=== PATIENT | female | born 1935 | race Two or more races ===

== ENCOUNTER 2024-06-06 17:44 | Inpatient (IN) | payer OTHER ==
[~2024-06-06] VITALS: Ht 149.9 cm; Wt 63.0 kg
[2024-06-06] MEDS ORDERED: GLIMEPIRIDE2 MG (18:00)
[2024-06-06] MEDS ORDERED: 0.9 % SODIUM CHLORIDE 1,000 ML IV ONE ×2 (18:15→20:30)
[2024-06-06] MEDS ORDERED: DEXTROSE 50 % IN WATER 0.5 G/ML VIAL IV ONE ×3 (18:15→23:00)
[2024-06-06 18:44] LABS: HEMOGLOBIN 10.4 g/dL (12.0-15.00); MEAN CELL VOLUME 95.3 fL (80.00-100.00); MEAN CORPUSCULAR HEMOGLOBIN 32.2 pg (27.00-32.0); MEAN CORPUSCULAR HGB CONC 33.7 g/dl (32.0-36.0); PLATELET COUNT 274 K/uL (150-450); RED BLOOD COUNT 3.25 M/uL (4.00-6.00); RED CELL DISTRIBUTION WIDTH 12.9 % (11.5-14.5)
[2024-06-06 18:55] LABS: INR 0.99; PROTHROMBIN TIME 10.8 SECONDS (9.0-11.5)
[2024-06-06 19:03] LABS: ALBUMIN 3.9 gm/dL (3.4-5.0); BILIRUBIN TOTAL 0.45 mg/dL (0.3-1.2); CALCIUM 9.3 mg/dL (8.5-10.1); CREATININE SERUM 0.98 mg/dL (0.55-1.02); GFR 53.68; GLOBULINA 3.6 G/DL (2.4-3.5); POTASSIUM 4.32 mEq/L (3.5-5.1); TOTAL PROTEIN 7.5 gm/dL (6.4-8.2)
[2024-06-06 19:07] LABS: D DIMER 0.65 MG/L
[2024-06-06 19:31] LABS: BILIRUBIN,CONJUGATED 0.11 mg/dL (0.0-0.2); BILIRUBIN,UNCONJUGATED 0.34 mg/dL (0.0-0.6)
[2024-06-06 20:26] LABS: URINE APPEARANCE Clear; URINE BILIRRUBIN Negative (NEGATIVE); URINE BLOOD Negative; URINE COLOR Yellow; URINE KETONE Negative (NEGATIVE); URINE LEUKOCYTE Negative; URINE NITRATE Negative; URINE PROTEIN Negative (NEGATIVE); URINE UROBILINOGEN 0.2 E.U./dl
[2024-06-06 20:30] LABS: URINE BACTERIA 26.4 uL (0.0-1933); URINE EPITHELIAL CELLS 9.1 uL (0.0-38.8); URINE WBC 15.4 uL (0.0-23.2)
[2024-06-06] MEDS ORDERED: LEVALBUTEROL HCL 0.63 MG/3 ML SOLUTION IH ONE (20:30)
[2024-06-06 20:53] LABS: URINE GLUCOSE 500 MG/DL (NEGATIVE); URINE RBC 0.3 uL (0.0-20.8)
[2024-06-06 21:45] LABS: ABG PH 7.383 (7.35-7.45); ABG PO2 88.2 mmHg (80-100); BICARBONATE 21.5 mmol/l (23-25); Tco2 22.7 mmol/l; o2 21 %
[2024-06-06 21:46] LABS: SaO2 96.5 %; allen test SATISFACTORY; puncture site RADIAL RIGHT
[2024-06-06] MEDS ORDERED: OCTREOTIDE ACETATE 0.05MG/ML (50MCG/ML) AMPUL IV ONE (23:00)
[2024-06-06] MEDS ORDERED: DEXTROSE 5 %-0.45 % SOD CHLORD 1,000 ML IV SCH ×2 (23:00→23:15)
[2024-06-06] MEDS ORDERED: DOXAZOSIN MESYLATE 2 MG TABLET PO SCH (23:21)
[2024-06-06] MEDS ORDERED: LevETIRAcetam 500 MG/5 ML VIAL IV SCH (23:22)
[2024-06-06] MEDS ORDERED: ACETAMINOPHEN 500 MG GEL..CAP PO PRN (23:30)
[2024-06-06] MEDS ORDERED: DEXTROSE 50 % IN WATER 0.5 G/ML DISP.SYRIN IV PRN (23:30)
[2024-06-07 00:32] VITALS: BP 138/50
[2024-06-07 00:39] LABS: INR 0.97; PARTIAL THROMBOPLASTIN TIME 29.1 SECONDS (22.0-34.0); PROTHROMBIN TIME 10.6 SECONDS (9.0-11.5)
[2024-06-07] MEDS ORDERED: INSULIN LISPRO 1,000 UNIT/10 ML UNITS SUBCUTANEO PRN (04:00)
[2024-06-07] MEDS ORDERED: DEXTROSE 50 % IN WATER 0.5 G/ML DISP.SYRIN IV PRN (04:00)
[2024-06-07 06:45] LABS: CREATININE SERUM 1.08 mg/dL (0.55-1.02); GFR 47.99; POTASSIUM 4.53 mEq/L (3.5-5.1)
[2024-06-07 06:58] VITALS: BP 149/61; O2SAT 100
[2024-06-07] MEDS ORDERED: FAMOTIDINE/PF 20 MG in 0.9 % SODIUM CHLORIDE 8 ML IV PUSH SCH (09:00)
[2024-06-07] MEDS ORDERED: HYDROCHLOROTHIAZIDE 12.5 MG CAPSULE PO SCH (09:00)
[2024-06-07] MEDS ORDERED: METOPROLOL SUCCINATE 25 MG TAB.SR.24H PO SCH (09:00)
[2024-06-07] MEDS ORDERED: IRBESARTAN 300 MG TABLET PO SCH (09:00)
[2024-06-07 10:30] VITALS: BP 145/75; O2SAT 100
[2024-06-07 17:00] VITALS: BP 109/58; O2SAT 99
[2024-06-08 01:50] VITALS: BP 131/77; O2SAT 97
[2024-06-08] MEDS ORDERED: SODIUM CHLORIDE 0.45 % 1,000 ML IV SCH (06:15)
[2024-06-08 08:00] VITALS: BP 160/71; O2SAT 96
[2024-06-08] MEDS ORDERED: LEVALBUTEROL HCL 1.25 MG/3 ML SOLUTION IH SCH (09:00)
[2024-06-08] MEDS ORDERED: BUDESONIDE 0.5 MG/2 ML AMPUL.NEB IH SCH (09:00)
[2024-06-08 15:14] LABS: HEMATOCRIT 31.3 % (36.0-45.00); HEMOGLOBIN 10.7 g/dL (12.0-15.00); MEAN CORPUSCULAR HEMOGLOBIN 32.5 pg (27.00-32.0); MEAN CORPUSCULAR HGB CONC 34.2 g/dl (32.0-36.0); PLATELET COUNT 221 K/uL (150-450); RED BLOOD COUNT 3.29 M/uL (4.00-6.00); RED CELL DISTRIBUTION WIDTH 12.7 % (11.5-14.5)
[2024-06-08 15:39] LABS: ALBUMIN 3.4 gm/dL (3.4-5.0); BILIRUBIN TOTAL 0.4 mg/dL (0.3-1.2); CALCIUM 8.8 mg/dL (8.5-10.1); CREATININE SERUM 1.18 mg/dL (0.55-1.02); GFR 43.33; GLOBULINA 2.7 G/DL (2.4-3.5); POTASSIUM 5.13 mEq/L (3.5-5.1); TOTAL PROTEIN 6.1 gm/dL (6.4-8.2)
[2024-06-08] MEDS ORDERED: METHYLPREDNISOLONE SOD SUCC 40 MG VIAL IV STA (16:36)
[2024-06-08] MEDS ORDERED: METHYLPREDNISOLONE SOD SUCC 40 MG VIAL IV SCH (17:00)
[2024-06-08] MEDS ORDERED: IPRATROPIUM BROMIDE 0.5 MG/2.5 ML AMPUL.NEB IH SCH (17:00)
[2024-06-08 18:23] VITALS: BP 136/63; O2SAT 96
[2024-06-09 00:35] VITALS: BP 112/52; O2SAT 99
[2024-06-09 08:27] VITALS: BP 153/710; O2SAT 97
[2024-06-09 17:00] VITALS: BP 152/58; O2SAT 98
[2024-06-10 08:00] VITALS: BP 180/86; O2SAT 98
== END 2024-06-10 15:59 | disposition home or self-care (01) | DRG 638 ==
LOC: ER 17:45 → ICU-2 23:24 → SURH 23:24
PROVIDERS: General Practice; Internal Medicine; ADMIT Internal Medicine; ATTEND Internal Medicine
PROC: BB24YZZ Computerized Tomography (CT Scan) of Bilateral Lungs using Other Contrast (ICD-10-PCS; principal; 2024-06-06)
PROC: BW28ZZZ Computerized Tomography (CT Scan) of Head (ICD-10-PCS; 2024-06-06)
DX: E11.649 Type 2 diabetes mellitus with hypoglycemia without coma (principal); G40.89 Other seizures; T38.3X1A Poisoning by insulin and oral hypoglycemic [antidiabetic] drugs, accidental (unintentional), initial encounter; Z79.4 Long term (current) use of insulin